=== PATIENT | female | born 1990 | race Two or more races ===

== ENCOUNTER 2017-04-09 00:26 | Inpatient (IN) | payer MEDICAID ==
[2017-04-09] VITALS (8 sets, daily range): BP systolic 114–130; BP diastolic 73–89
[~2017-04-09] VITALS: Ht 160 cm; Wt 69.9 kg
[2017-04-09] MEDS ORDERED: NKM (00:33)
[2017-04-09] MEDS ORDERED: Morphine Sulfate 4mg/ml Inj IVP ONE ×2 (01:00→05:30)
[2017-04-09 01:02] LABS: BASOPHILS % (AUTO) 0.9 % (0.0-2.0); EOSINOPHILS % (AUTO) 1.4 % (0.0-3.0); HEMATOCRIT 46.8 % (37.0-47.0); HEMOGLOBIN 16.3 G/DL (12.0-16.0); LYMPHOCYTES % (AUTO) 21.9 % (20.0-45.0); MEAN CORPUSCULAR VOLUME 86 FL (80-99); MONOCYTES % (AUTO) 6.5 % (1.0-10.0); NEUTROPHILS % (AUTO) 69.4 % (45.0-75.0); PLATELET COUNT 277 K/UL (150-450); RED BLOOD COUNT 5.41 M/UL (4.20-5.40); RED CELL DISTRIBUTION WIDTH 11.2 % (11.6-14.8); WHITE BLOOD COUNT 9.6 K/UL (4.8-10.8)
[2017-04-09 01:04] LABS: BILIRUBIN, URINE NEGATIVE (NEGATIVE); COLOR,URINE PALE YELLOW; GLUCOSE, URINE (UA) NEGATIVE (NEGATIVE); KETONES,URINE NEGATIVE (NEGATIVE); LEUKOCYTE ESTERASE ,URINE 3+ (NEGATIVE); NITRITE,URINE NEGATIVE (NEGATIVE); PH,URINE 6.5 (4.5-8.0); PROTEIN,URINE 1+ (NEGATIVE); UROBILINOGEN,URINE NORMAL MG/DL (0.0-1.0)
[2017-04-09 01:12] LABS: ANION GAP 11 mmol/L (5-15); BLOOD UREA NITROGEN 15 mg/dL (7-18); CALCIUM 8.2 MG/DL (8.5-10.1); CARBON DIOXIDE 23 MMOL/L (21-32); CHLORIDE 101 MMOL/L (98-107); CREATININE 0.6 MG/DL (0.55-1.30); POTASSIUM 3.7 MMOL/L (3.5-5.1); SODIUM 135 MMOL/L (136-145)
[2017-04-09 01:16] LABS: APPEARANCE,URINE CLOUDY
[2017-04-09 01:17] LABS: ALANINE AMINOTRANSFERASE 717 U/L (12-78); ALBUMIN 3.6 G/DL (3.4-5.0); ALBUMIN/GLOBULIN RATIO 1.1 (1.0-2.7); ALKALINE PHOSPHATASE 97 U/L (46-116); ASPARTATE AMINO TRANSFERASE 554 U/L (15-37); BILIRUBIN,TOTAL 0.8 MG/DL (0.2-1.0)
--- NOTE | 2017-04-09 02:00 | Emergency Room Report ---
History of Present Illness General Chief Complaint: Abdominal Pain Source: Patient Present Illness HPI Patient presents with epigastric pain. She states this began earlier tonight when she was drinking tequila. She states doesn't drink every day but this is a libertarian. She's been vomiting from an look like coffee and then some blood. She denies any melena or. She's never had this problem before. Pain rated 10/ 10 burning pressure, epigastric, not radiate to back. No meds taken. Also has headache. No fevers or chills. She denies daily drinking. No SI or HI. No URI symptoms. Not now. Allergies: Coded Allergies: No Known Allergies (Unverified , 04/09/17) Patient History Past Medical History: see triage record Social History: Reports: alcohol use, Denies: smoking Social History Narrative Last Menstrual Period: Mar Reviewed Nursing Documentation: PMH: Agreed, PSxH: Agreed Nursing Documentation-PMH Past Medical History: No Stated History Review of Systems All Other Systems: negative except mentioned in HPI Physical Exam Vital Signs Date Time Temp Pulse Resp B/P (MAP) Pulse Ox O2 Delivery O2 Flow Rate FiO2 04/09/17 00:28 98.7 109 16 128/89 96 Room Air 98.8 Sp02 EP Interpretation: reviewed, normal General Appearance: well appearing, GCS 15, mild distress Head: normocephalic, atraumatic Eyes: bilateral eye PERRL, bilateral eye Scleral Injection ENT: moist mucus membranes, other - buccal fullness Neck: supple Respiratory: lungs clear, normal breath sounds Cardiovascular #1: regular rate, rhythm Cardiovascular #2: 2+ radial (R) Gastrointestinal: normal inspection, normal bowel sounds, no mass, non- distended, no guarding, no rebound, tenderness Musculoskeletal: back normal, gait/station normal, normal range of motion Neurologic: alert, oriented x3, grossly normal Psychiatric: mood/affect normal Skin: normal inspection, warm/dry Medical Decision Making Diagnostic Impression: Primary Impression: Abdominal pain Qualified Codes: R10.13 - Epigastric pain Additional Impressions: Intractable vomiting with nausea Qualified Codes: R11.2 - Nausea with vomiting, unspecified Gastritis Qualified Codes: K29.21 - Alcoholic gastritis with bleeding GI bleed Qualified Codes: K29.21 - Alcoholic gastritis with bleeding Elevated LFTs ER Course Patient presents with abdominal pain and vomiting blood. Differential includes gastritis, alcoholic gastritis, peptic ulcer disease, esophagitis, Kasia- Carlos tear, hepatitis, pancreatitis amongst others. Evaluation will be with labs. Based on her exam had no imaging studies are indicated at this time. She be treated with IV hydration, Zofran and Pepcid with morphine. Labs revealed elevated liver function tests with normal bilirubin. Lipase is normal. White count is normal. H&H is actually elevated suggesting dehydration. The patient has improved but still complained of nausea and abdominal pain. Zofran is repeated. The patient still has vomiting after a trial of water. Due to the fact that she 's unable to keep down by mouth meds and still has abdominal pain the patient will be admitted to a medical floor. Given compazine and still with nausea and vomiting. Discussed consideration for AA and abstinence when stabilized. Laboratory Tests Test 04/09/17 00:35 04/09/17 00:40 Urine Color Pale yellow Urine Appearance Cloudy Urine pH 6.5 (4.5-8.0) Urine Specific [place] 1.005 (1.005-1.035) Urine Protein 1+ (NEGATIVE) H Urine Glucose (UA) Negative (NEGATIVE) Urine Ketones Negative (NEGATIVE) Urine Occult Blood 1+ (NEGATIVE) H Urine Nitrite Negative (NEGATIVE) Urine Bilirubin Negative (NEGATIVE) Urine Urobilinogen Normal MG/DL (0.0-1.0) Urine Leukocyte Esterase 3+ (NEGATIVE) H Urine RBC 2-4 /HPF (0 - 2) H Urine WBC 40-60 /HPF (0 - 2) H Urine Squamous Epithelial Cells Many /LPF (NONE/OCC) H Urine Bacteria Many /HPF (NONE) H Urine HCG, Qualitative Negative White Blood Count 9.6 K/UL (4.8-10.8) Red Blood Count 5.41 M/UL (4.20-5.40) H Hemoglobin 16.3 G/DL (12.0-16.0) H Hematocrit 46.8 % (37.0-47.0) Mean Corpuscular Volume 86 FL (80-99) Mean Corpuscular Hemoglobin 30.1 PG (27.0-31.0) Mean Corpuscular Hemoglobin Concent 34.8 G/DL (32.0-36.0) Red Cell Distribution Width 11.2 % (11.6-14.8) L Platelet Count 277 K/UL (150-450) Mean Platelet Volume 6.4 FL (6.5-10.1) L Neutrophils (%) (Auto) 69.4 % (45.0-75.0) Lymphocytes (%) (Auto) 21.9 % (20.0-45.0) Monocytes (%) (Auto) 6.5 % (1.0-10.0) Eosinophils (%) (Auto) 1.4 % (0.0-3.0) Basophils (%) (Auto) 0.9 % (0.0-2.0) Sodium Level 135 MMOL/L (136-145) L Potassium Level 3.7 MMOL/L (3.5-5.1) Chloride Level 101 MMOL/L (98-107) Carbon Dioxide Level 23 MMOL/L (21-32) Anion Gap 11 mmol/L (5-15) Blood Urea Nitrogen 15 mg/dL (7-18) Creatinine 0.6 MG/DL (0.55-1.30) Estimate Glomerular Filtration Rate > 60 mL/min (>60) Glucose Level 114 MG/DL (74-106) H Calcium Level 8.2 MG/DL (8.5-10.1) L Total Bilirubin 0.8 MG/DL (0.2-1.0) Aspartate Amino Transferase (AST) 554 U/L (15-37) H Alanine Aminotransferase (ALT) 717 U/L (12-78) H Alkaline Phosphatase 97 U/L (46-116) Total Protein 7.0 G/DL (6.4-8.2) Albumin 3.6 G/DL (3.4-5.0) Globulin 3.4 g/dL Albumin/Globulin Ratio 1.1 (1.0-2.7) Lipase 84 U/L (73-393) Last Vital Signs Date Time Temp Pulse Resp B/P (MAP) Pulse Ox O2 Delivery O2 Flow Rate FiO2 04/09/17 12:15 98.2 74 22 124/75 98 Room Air 98.2 Status: improved Disposition: ADMITTED INPATIENT Condition: Serious Referrals: NON PHYSICIAN (PCP) Dionte Bailey M.D. Apr 09, 2017 02:00
[2017-04-09] MEDS ORDERED: Pantoprazole Inj IVP ONE (05:30)
[2017-04-09] MEDS ORDERED: DiphenhydrAMINE 50mg/ml Inj IVP ONE (07:45)
[2017-04-09] MEDS ORDERED: LORazepam 1mg tab ORAL PRN (08:45)
[2017-04-09] MEDS ORDERED: traMADol 50mg tab ORAL PRN (08:45)
--- NOTE | 2017-04-09 08:53 | Consultation ---
History of Present Illness General Date patient seen: Apr 09, 2017 Present Illness Allergies: Coded Allergies: No Known Allergies (Unverified , 04/09/17) Medication History Scheduled No Known Medications* (NKM - No Known Medications*), 0 ., (Reported) Patient History Healthcare decision maker Resuscitation status Advanced Directive on File Physical Exam Last 24 Hour Vital Signs Date Time Temp Pulse Resp B/P (MAP) Pulse Ox O2 Delivery O2 Flow Rate FiO2 04/09/17 08:29 98.5 90 14 114/73 97 Room Air 209.8 04/09/17 08:29 98.5 90 14 114/73 97 Room Air 98.5 04/09/17 06:56 92 11 117/77 97 Room Air 04/09/17 05:29 98.8 04/09/17 04:40 94 14 127/85 98 Room Air 04/09/17 02:40 99 14 127/89 96 Room Air 04/09/17 01:43 98.8 04/09/17 01:04 98.8 04/09/17 00:40 98.8 109 16 128/89 96 Room Air 98.8 04/09/17 00:28 98.7 109 16 128/89 96 Room Air 98.8 Intake and Output 04/08/17 04/09/17 19:00 07:00 Intake Total 2000 ml Balance 2000 ml Intake IV Total 2000 ml # Voids 1 Laboratory Tests Test 04/09/17 00:35 04/09/17 00:40 Urine Color Pale yellow Urine Appearance Cloudy Urine pH 6.5 (4.5-8.0) Urine Specific [place] 1.005 (1.005-1.035) Urine Protein 1+ (NEGATIVE) H Urine Glucose (UA) Negative (NEGATIVE) Urine Ketones Negative (NEGATIVE) Urine Occult Blood 1+ (NEGATIVE) H Urine Nitrite Negative (NEGATIVE) Urine Bilirubin Negative (NEGATIVE) Urine Urobilinogen Normal MG/DL (0.0-1.0) Urine Leukocyte Esterase 3+ (NEGATIVE) H Urine RBC 2-4 /HPF (0 - 2) H Urine WBC 40-60 /HPF (0 - 2) H Urine Squamous Epithelial Cells Many /LPF (NONE/OCC) H Urine Bacteria Many /HPF (NONE) H Urine HCG, Qualitative Negative White Blood Count 9.6 K/UL (4.8-10.8) Red Blood Count 5.41 M/UL (4.20-5.40) H Hemoglobin 16.3 G/DL (12.0-16.0) H Hematocrit 46.8 % (37.0-47.0) Mean Corpuscular Volume 86 FL (80-99) Mean Corpuscular Hemoglobin 30.1 PG (27.0-31.0) Mean Corpuscular Hemoglobin Concent 34.8 G/DL (32.0-36.0) Red Cell Distribution Width 11.2 % (11.6-14.8) L Platelet Count 277 K/UL (150-450) Mean Platelet Volume 6.4 FL (6.5-10.1) L Neutrophils (%) (Auto) 69.4 % (45.0-75.0) Lymphocytes (%) (Auto) 21.9 % (20.0-45.0) Monocytes (%) (Auto) 6.5 % (1.0-10.0) Eosinophils (%) (Auto) 1.4 % (0.0-3.0) Basophils (%) (Auto) 0.9 % (0.0-2.0) Sodium Level 135 MMOL/L (136-145) L Potassium Level 3.7 MMOL/L (3.5-5.1) Chloride Level 101 MMOL/L (98-107) Carbon Dioxide Level 23 MMOL/L (21-32) Anion Gap 11 mmol/L (5-15) Blood Urea Nitrogen 15 mg/dL (7-18) Creatinine 0.6 MG/DL (0.55-1.30) Estimat Glomerular Filtration Rate > 60 mL/min (>60) Glucose Level 114 MG/DL (74-106) H Calcium Level 8.2 MG/DL (8.5-10.1) L Ferritin 284 NG/ML (8-388) Total Bilirubin 0.8 MG/DL (0.2-1.0) Aspartate Amino Transf (AST/SGOT) 554 U/L (15-37) H Alanine Aminotransferase (ALT/SGPT) 717 U/L (12-78) H Alkaline Phosphatase 97 U/L (46-116) Total Protein 7.0 G/DL (6.4-8.2) Albumin 3.6 G/DL (3.4-5.0) Globulin 3.4 g/dL Albumin/Globulin Ratio 1.1 (1.0-2.7) Lipase 84 U/L (73-393) Acetaminophen Level < 2 MCG/ML (10-30) L Height (Feet): 5 Height (Inches): 3.00 Weight (Pounds): 154 Medications Current Medications Medications (Trade) Dose Ordered Sig/Rakesh Route PRN Reason Start Time Stop Time Status Last Admin Dose Admin Sodium Chloride 1,000 ml @ 300 mls/hr Q3H20M IV 04/09/17 01:00 05/09/17 00:59 04/09/17 05:29 Assessment/Plan Assessment/Plan (1) Alcohol Abuse (2) Alcohol withdrawal (3) Abdominal pain (4) Gastritis Seen dictated RASHID FLOWERS Apr 09, 2017 08:53
--- NOTE | 2017-04-09 10:31 | GI Initial Consult Note ---
History of Present Illness General Date patient seen: Apr 09, 2017 Time patient seen: 10:25 Reason for Hospitalization: Abdominal Pain Referring physician: DAVIDSON DÍAZ Reason for Consultation: PERSISTANT VOMITING Present Illness HPI Patient presents with epigastric pain. She states this began earlier tonight when she was drinking tequila. She states doesn't drink every day but this is a democrat. She's been vomiting from an look like coffee and then some blood. She denies any melena or. She's never had this problem before. GI consulted for persistent vomiting. Pt seen on med surg, awake A&Ox4 NAD ambulatory with no active s/sx of N/V/D. Denies any abdominal pain. States she is ready to be discharged. Per patient, had almost a full bottle of tequila. No known medical history. No history of endoscopy / colonoscopy. Home Meds Reported Medications No Known Medications* (NKM - No Known Medications*) ., 0 ., 0 Refills 04/09/17 Med list reviewed/reconciled: Yes Allergies: Coded Allergies: No Known Allergies (Unverified , 04/09/17) Patient History History Provided By: Patient, Medical Record PMH Narrative Social History: Reports: alcohol use Social History Narrative Last Menstrual Period: Mar Reviewed Nursing Documentation: PSxH: Agreed Nursing Documentation-PMH Past Medical History: No Stated History Social History: Reports: alcohol use - ETOH intoxication Review of Systems All Other Systems: negative except mentioned in HPI Physical Exam Vital Signs Date Time Temp Pulse Resp B/P (MAP) Pulse Ox O2 Delivery O2 Flow Rate FiO2 04/09/17 00:28 98.7 109 16 128/89 96 Room Air 98.8 Sp02 EP Interpretation: reviewed, normal Labs Laboratory Tests Test 04/09/17 00:35 04/09/17 00:40 Urine Color Pale yellow Urine Appearance Cloudy Urine pH 6.5 (4.5-8.0) Urine Specific [place] 1.005 (1.005-1.035) Urine Protein 1+ (NEGATIVE) H Urine Glucose (UA) Negative (NEGATIVE) Urine Ketones Negative (NEGATIVE) Urine Occult Blood 1+ (NEGATIVE) H Urine Nitrite Negative (NEGATIVE) Urine Bilirubin Negative (NEGATIVE) Urine Urobilinogen Normal MG/DL (0.0-1.0) Urine Leukocyte Esterase 3+ (NEGATIVE) H Urine RBC 2-4 /HPF (0 - 2) H Urine WBC 40-60 /HPF (0 - 2) H Urine Squamous Epithelial Cells Many /LPF (NONE/OCC) H Urine Bacteria Many /HPF (NONE) H Urine HCG, Qualitative Negative White Blood Count 9.6 K/UL (4.8-10.8) Red Blood Count 5.41 M/UL (4.20-5.40) H Hemoglobin 16.3 G/DL (12.0-16.0) H Hematocrit 46.8 % (37.0-47.0) Mean Corpuscular Volume 86 FL (80-99) Mean Corpuscular Hemoglobin 30.1 PG (27.0-31.0) Mean Corpuscular Hemoglobin Concent 34.8 G/DL (32.0-36.0) Red Cell Distribution Width 11.2 % (11.6-14.8) L Platelet Count 277 K/UL (150-450) Mean Platelet Volume 6.4 FL (6.5-10.1) L Neutrophils (%) (Auto) 69.4 % (45.0-75.0) Lymphocytes (%) (Auto) 21.9 % (20.0-45.0) Monocytes (%) (Auto) 6.5 % (1.0-10.0) Eosinophils (%) (Auto) 1.4 % (0.0-3.0) Basophils (%) (Auto) 0.9 % (0.0-2.0) Sodium Level 135 MMOL/L (136-145) L Potassium Level 3.7 MMOL/L (3.5-5.1) Chloride Level 101 MMOL/L (98-107) Carbon Dioxide Level 23 MMOL/L (21-32) Anion Gap 11 mmol/L (5-15) Blood Urea Nitrogen 15 mg/dL (7-18) Creatinine 0.6 MG/DL (0.55-1.30) Estimat Glomerular Filtration Rate > 60 mL/min (>60) Glucose Level 114 MG/DL (74-106) H Calcium Level 8.2 MG/DL (8.5-10.1) L Ferritin 284 NG/ML (8-388) Total Bilirubin 0.8 MG/DL (0.2-1.0) Aspartate Amino Transf (AST/SGOT) 554 U/L (15-37) H Alanine Aminotransferase (ALT/SGPT) 717 U/L (12-78) H Alkaline Phosphatase 97 U/L (46-116) Total Protein 7.0 G/DL (6.4-8.2) Albumin 3.6 G/DL (3.4-5.0) Globulin 3.4 g/dL Albumin/Globulin Ratio 1.1 (1.0-2.7) Lipase 84 U/L (73-393) Acetaminophen Level < 2 MCG/ML (10-30) L General Appearance: well appearing, no apparent distress, alert, obese Head: normocephalic EENT: PERRL/EOMI, normal ENT inspection Neck: supple Respiratory: normal breath sounds, no respiratory distress Cardiovascular: normal rate Gastrointestinal: normal inspection, non tender, soft, normal bowel sounds, non -distended Rectal: deferred Genitourinary: no CVA tenderness Musculoskeletal: normal inspection, back normal Neurologic: normal inspection, alert, oriented x3, responsive Psychiatric: normal inspection, judgement/insight normal, memory normal Skin: normal inspection, normal color, no rash, warm/dry, palpation normal, well hydrated Lymphatic: normal inspection, no adenopathy Current Medications Current Medications Medications (Trade) Dose Ordered Sig/Rakesh Route PRN Reason Start Time Stop Time Status Last Admin Dose Admin Lorazepam (Ativan) 2 mg Q4H PRN ORAL agitation 04/09/17 08:45 04/16/17 08:44 Ondansetron HCl (Zofran) 4 mg Q6H PRN IVP Nausea & Vomiting 04/09/17 10:00 05/09/17 09:59 UNV Sodium Chloride 1,000 ml @ 300 mls/hr Q3H20M IV 04/09/17 01:00 05/09/17 00:59 04/09/17 05:29 Tramadol HCl (Ultram) 50 mg Q6H PRN ORAL severe pain 04/09/17 08:45 04/16/17 08:44 GI: Plan Problems: (1) Transaminitis (2) Hepatotoxicity, secondary to ETOH (3) Abdominal pain (4) Persistent vomiting (5) Intractable vomiting with nausea Plan symptomatic treatment adv to regular diet ppi zofran prn fu labs avoid excessive alcohol education given okay for DC per GI standpoint Discussed with Dr. King. Thank you for this patient referral, we will follow. Stacy Lui N.P. Apr 09, 2017 10:31
--- NOTE | 2017-04-09 15:07 | Consultation ---
Consult Note Consult Note Patient presents with epigastric pain. She states this began earlier tonight when she was drinking tequila. She states doesn't drink every day but this is a republican. She's been vomiting from an look like coffee and then some blood. She denies any melena or. She's never had this problem before. Pain rated 10/ 10 burning pressure, epigastric, not radiate to back. No meds taken. Also has headache. No fevers or chills. She denies daily drinking. No SI or HI. No URI symptoms. Not now. . Assessment/Plan Dehydration-Intractable vomiting with nausea High LFTs- UTI - Abdominal pain Plan: Hydrate- Monitor lytes and LFTs per orders THAI ZAVALA Apr 09, 2017 15:07
[2017-04-09] MEDS: D5NS 1,000 ML IV SCH (16:28)
--- NOTE | 2017-04-09 18:30 | Consultation ---
DATE OF CONSULTATION: 04/09/2017 PAIN MANAGEMENT CONSULTATION CONSULTING PHYSICIAN: Brandan Leger M.D. REFERRING PHYSICIAN: Wilma Chau M.D. PHYSICIAN LEASING PROPERTY MANAGER: Astrid Gaxiola CHIEF COMPLAINT: Abdominal pain. HISTORY OF PRESENT ILLNESS: The patient is a 27-year-old female who is being seen on the Medical/Surgical floor of [facility] for a comprehensive pain management consultation. The patient reports that she has been having abdominal pain due to drinking multiple shots of Tequila with nausea and vomiting. She was drinking due to a green party and again drank too much and now has been having severe abdominal pain with nausea and vomiting. The patient received morphine 4 mg IV, Zofran and Pepcid while in the emergency room. Now has been admitted under the care of Dr. Chau. We were consulted the patient has adequate pain control while here in the hospital. PAST MEDICAL HISTORY: Denies. PAST SURGICAL HISTORY: Denies. SOCIAL HISTORY: Drinks alcohol. Denies tobacco and IV drug abuse. ALLERGIES: No known drug allergies. MEDICATIONS: She does not take any medication as an outpatient. REVIEW OF SYSTEMS: Denies rash, fever, chills, sweating, dizziness, drowsiness, blurred vision, sore throat, or change in her weight. No shortness of breath. No bowel or bladder incontinence. No dysuria. She is complaining of nausea, vomiting, and abdominal pain. PHYSICAL EXAMINATION: GENERAL: Alert, awake, and oriented x3. VITAL SIGNS: Blood pressure 114/73, heart rate is 90, oxygen saturation 97%, respiratory rate is 14, and temperature 98.4 degrees Fahrenheit. HEENT: PERRLA. NECK: Range of motion full in all directions. No tenderness to paracervical muscles. LUNGS: Clear. HEART: Regular. ABDOMEN: Tenderness to palpation. BACK: Range of motion is full on flexion and extension. EXTREMITIES: No cyanosis, no clubbing, and no edema. NEUROLOGICAL: No focal deficit. ASSESSMENT AND PLAN: This is a 27-year-old female with alcohol abuse, alcohol withdrawal, abdominal pain, and gastritis. The patient will be started on tramadol 50 mg tablet every six hours as needed for severe pain as well as an Ativan 2 mg tablet every four hours as needed for agitation recommended at this time. The patient was discussed with Dr. Leger and Dr. Leger concurred. We will follow the patient. Thank you very much for the courtesy of this consultation. Brandan Leger M.D. DIANE Gaxiola DR: OPAL JOB#: [id number] CC:
--- NOTE | 2017-04-09 20:15 | Consultation ---
DATE OF CONSULTATION: 04/09/2017 HEMATOLOGY/ONCOLOGY CONSULTATION CONSULTING PHYSICIAN: Sandip Sweeney M.D. REQUESTING PHYSICIAN: Wilma Chau M.D. REASON FOR CONSULTATION: Evaluation of erythrocytosis. IDENTIFICATION DATA: Dear Dr. Chau, The patient is a pleasant 27-year-old female with past medical history significant just for alcohol abuse, having regular periods, at this time presents to the ER with epigastric abdominal pain that has been onset for several hours. She said she was drinking tequila, noticed to have severe abdominal pain. Does not smoke marijuana per the patient. Also does not have any family history of such symptoms. None of her friends sustained similar symptoms. She was noted to have a hemoglobin of 16.3, does not have a history of hemochromatosis per her family. Hematology Service was consulted for further evaluation and treatment. Denies any melena. PAST MEDICAL HISTORY: Alcohol abuse. PAST SURGICAL HISTORY: None reported. ALLERGIES: No known drug allergies. SOCIAL HISTORY: Alcohol abuse. REVIEW OF SYSTEMS: CONSTITUTIONAL: No fever, chills, or night sweats. SKIN: No rashes, bumps, or itching. HEENT: No headaches or vision changes. BREASTS: No lumps, pain, or discharge. PULMONARY: No cough, sputum, or shortness of breath. GASTROINTESTINAL: No nausea, vomiting, or diarrhea. GENITOURINARY: No dysuria, frequency, or urgency. MUSCULOSKELETAL: No joint swelling, muscle pain, or trauma. PHYSICAL EXAMINATION: GENERAL: No distress. VITAL SIGNS: Reviewed. PULMONARY: Decreased breath sounds. CARDIOVASCULAR: Regular rate. No S3 or S4. ABDOMEN: Soft. Some mild tenderness noted actually in the epigastric area. EXTREMITIES: No cyanosis, swelling, or edema. LABORATORY DATA: WBC 5.6, hemoglobin 16.3, hematocrit 47, and platelet count 277,000. ASSESSMENT AND RECOMMENDATIONS: 1. Erythrocytosis, potentially secondary to hypokalemia and hypovolemia. The patient is dehydrated. Continue to closely monitor. Send off for ferritin. If ferritin is high, consider hemochromatosis. 2. Transaminitis, potentially concerning to alcohol abuse. 3. Epigastric pain. Obtain imaging of the abdomen. 4. Alcohol abuse. Recommend cessation. I appreciate the consultation. Sandip Christi Sweeney DR: PHILLIP JOB#: [id number] CC:
--- NOTE | 2017-04-09 23:45 | History and Physical Report ---
DATE OF ADMISSION: 04/09/2017 HISTORY OF PRESENT ILLNESS: The patient comes in, has history of drug abuse, history of alcohol abuse, comes with abdominal pain and vomiting since yesterday. The patient has history of alcohol abuse. The patient denies rectal bleeding. Denies hematemesis, but apparently there was one episode of coffee-ground emesis. The patient denies hallucinations. Denies any significant tremors at this point. PAST MEDICAL HISTORY: Significant for history of alcohol abuse. PAST SURGICAL HISTORY: None. MEDICATIONS: None. FAMILY HISTORY: Noncontributory. SOCIAL HISTORY: Has history of drug and alcohol abuse. REVIEW OF SYSTEMS: HEENT: Denies headaches. RESPIRATORY: Denies shortness of breath. Denies cough. CARDIOVASCULAR: Denies chest pain. Denies orthopnea. GASTROINTESTINAL: Reports abdominal pain and vomiting, one time coffee-ground emesis since yesterday. Denies diarrhea. EXTREMITIES: Denies pain in lower extremities. CENTRAL NERVOUS SYSTEM: No change in vision or speech pattern. Does have . PHYSICAL EXAMINATION: VITAL SIGNS: Temperature 98.5, pulse 98, and blood pressure 114/73. HEENT: PERRLA. NECK: Supple. No lymphadenopathy. CHEST: Clear to auscultation. GASTROINTESTINAL: Mild epigastric tenderness. No rebound. Abdomen is soft. EXTREMITIES: No edema in the lower extremities. She is able to move all four extremities. NEUROLOGIC: No focal neurological deficit. LABORATORY DATA: WBC of 9.6, hemoglobin 16.3, platelets 277. Sodium 135, potassium 3.7, BUN 15, creatinine 0.6, glucose of 114. AST of 554 and ALT 717. Negative lipase. ASSESSMENT AND PLAN: Upper gastrointestinal bleed, persistent vomiting, alcohol abuse. I have asked Dr. King, Dr. Rosales, Dr. Kasper, Dr. Ramirez, and Dr. Leger for management of the above-mentioned diagnoses and treatment and also for management of any DTs if the patient does end up having it at this point. I doubt that the patient is going through DTs, but in case she does go through DTs, Dr. Kasper and Dr. Ramirez will also help us with the management of that. Wilma Chau M.D. DR: Jenifer JOB#: [id number] CC:
[2017-04-10] VITALS: BP 121/86
[2017-04-10 04:00] VITALS: BP 122/84
[2017-04-10] MEDS: D5NS 1,000 ML IV SCH (05:42)
[2017-04-10 07:30] LABS: BASOPHILS % (AUTO) 1.2 % (0.0-2.0); EOSINOPHILS % (AUTO) 4.9 % (0.0-3.0); HEMATOCRIT 43.3 % (37.0-47.0); LYMPHOCYTES % (AUTO) 32.4 % (20.0-45.0); MEAN CORPUSCULAR VOLUME 89 FL (80-99); MONOCYTES % (AUTO) 7.2 % (1.0-10.0); NEUTROPHILS % (AUTO) 54.3 % (45.0-75.0); PLATELET COUNT 216 K/UL (150-450); RED BLOOD COUNT 4.88 M/UL (4.20-5.40); RED CELL DISTRIBUTION WIDTH 11.7 % (11.6-14.8)
[2017-04-10 07:50] LABS: ALANINE AMINOTRANSFERASE 522 U/L (12-78); ALBUMIN 3.4 G/DL (3.4-5.0); ALBUMIN/GLOBULIN RATIO 1.1 (1.0-2.7); ALKALINE PHOSPHATASE 98 U/L (46-116); ANION GAP 7 mmol/L (5-15); ASPARTATE AMINO TRANSFERASE 240 U/L (15-37); BILIRUBIN,TOTAL 0.9 MG/DL (0.2-1.0); BLOOD UREA NITROGEN 2 mg/dL (7-18); CALCIUM 8.3 MG/DL (8.5-10.1); CARBON DIOXIDE 31 MMOL/L (21-32); CHLORIDE 103 MMOL/L (98-107); CREATINE KINASE 59 U/L (26-308); CREATININE 0.6 MG/DL (0.55-1.30); GAMMA GLUTAMYL TRANSPEPTIDASE 78 U/L (5-85); PHOSPHORUS 2.9 MG/DL (2.5-4.9); POTASSIUM 3.2 MMOL/L (3.5-5.1); SODIUM 140 MMOL/L (136-145)
[2017-04-10 09:00] VITALS: BP 125/73
--- NOTE | 2017-04-10 10:55 | GI Progress Note ---
Assessment/Plan Problems: (1) Intractable vomiting with nausea ICD Codes: R11.2 - Nausea with vomiting, unspecified SNOMED: 201931980 Qualifiers: Qualified Codes: R11.2 - Nausea with vomiting, unspecified (2) GI bleed ICD Codes: K92.2 - Gastrointestinal hemorrhage, unspecified SNOMED: 44929964 Qualifiers: Qualified Codes: K29.21 - Alcoholic gastritis with bleeding (3) Abdominal pain ICD Codes: R10.9 - Unspecified abdominal pain SNOMED: 23200068 Qualifiers: Qualified Codes: R10.13 - Epigastric pain (4) Gastritis ICD Codes: K29.70 - Gastritis, unspecified, without bleeding SNOMED: 4614932 Qualifiers: Qualified Codes: K29.21 - Alcoholic gastritis with bleeding (5) Elevated LFTs ICD Codes: R79.89 - Other specified abnormal findings of blood chemistry SNOMED: 898365927, 818915688 (6) Hepatotoxicity, secondary to ETOH ICD Codes: K70.9 - Alcoholic liver disease, unspecified SNOMED: 86597349 (7) Transaminitis ICD Codes: R74.0 - Nonspecific elevation of levels of transaminase and lactic acid dehydrogenase [LDH] SNOMED: 181558894, 678084173 (8) Persistent vomiting ICD Codes: R11.10 - Vomiting, unspecified SNOMED: 932825619 Status: stable Status Narrative Discussed with Dr. King. Assessment/Plan okay for DC per GI standpoint symptomatic treatment adv to regular diet ppi zofran prn fu labs avoid excessive alcohol Subjective Gastrointestinal/Abdominal: Reports: no symptoms Subjective ready for discharge Objective Last 24 Hour Vital Signs Date Time Temp Pulse Resp B/P (MAP) Pulse Ox O2 Delivery O2 Flow Rate FiO2 04/10/17 09:00 98.1 79 18 125/73 98 Room Air 98.1 04/10/17 04:00 98.5 81 19 122/84 97 Room Air 98.5 04/10/17 00:00 98.1 71 20 121/86 97 98.1 04/09/17 20:00 98.1 69 20 130/80 98 98.1 04/09/17 16:00 98.6 74 20 123/85 98 98.6 04/09/17 12:15 98.2 74 22 124/75 98 Room Air 98.2 Intake and Output 04/09/17 04/10/17 19:00 07:00 Intake Total 555 ml 750 ml Balance 555 ml 750 ml Intake Oral 480 ml IV Total 75 ml 750 ml # Voids 1 5 Laboratory Tests Test 04/10/17 06:05 White Blood Count 6.0 K/UL (4.8-10.8) Red Blood Count 4.88 M/UL (4.20-5.40) Hemoglobin 15.0 G/DL (12.0-16.0) Hematocrit 43.3 % (37.0-47.0) Mean Corpuscular Volume 89 FL (80-99) Mean Corpuscular Hemoglobin 30.7 PG (27.0-31.0) Mean Corpuscular Hemoglobin Concent 34.6 G/DL (32.0-36.0) Red Cell Distribution Width 11.7 % (11.6-14.8) Platelet Count 216 K/UL (150-450) Mean Platelet Volume 7.0 FL (6.5-10.1) Neutrophils (%) (Auto) 54.3 % (45.0-75.0) Lymphocytes (%) (Auto) 32.4 % (20.0-45.0) Monocytes (%) (Auto) 7.2 % (1.0-10.0) Eosinophils (%) (Auto) 4.9 % (0.0-3.0) H Basophils (%) (Auto) 1.2 % (0.0-2.0) Sodium Level 140 MMOL/L (136-145) Potassium Level 3.2 MMOL/L (3.5-5.1) L Chloride Level 103 MMOL/L (98-107) Carbon Dioxide Level 31 MMOL/L (21-32) Anion Gap 7 mmol/L (5-15) Blood Urea Nitrogen 2 mg/dL (7-18) L Creatinine 0.6 MG/DL (0.55-1.30) Estimat Glomerular Filtration Rate > 60 mL/min (>60) Glucose Level 92 MG/DL (74-106) Uric Acid 2.6 MG/DL (2.6-7.2) Calcium Level 8.3 MG/DL (8.5-10.1) L Phosphorus Level 2.9 MG/DL (2.5-4.9) Magnesium Level 1.5 MG/DL (1.8-2.4) L Total Bilirubin 0.9 MG/DL (0.2-1.0) Gamma Glutamyl Transpeptidase 78 U/L (5-85) Aspartate Amino Transf (AST/SGOT) 240 U/L (15-37) H Alanine Aminotransferase (ALT/SGPT) 522 U/L (12-78) H Alkaline Phosphatase 98 U/L (46-116) Total Creatine Kinase 59 U/L (26-308) Total Protein 6.6 G/DL (6.4-8.2) Albumin 3.4 G/DL (3.4-5.0) Globulin 3.2 g/dL Albumin/Globulin Ratio 1.1 (1.0-2.7) Height (Feet): 5 Height (Inches): 3.00 Weight (Pounds): 154 General Appearance: WD/WN, no apparent distress, alert Cardiovascular: normal rate Respiratory/Chest: normal breath sounds, no respiratory distress Abdominal Exam: normal bowel sounds, non tender, soft Extremities: normal range of motion, non-tender Stacy Lui N.P. Apr 10, 2017 10:55
[2017-04-10] MEDS ORDERED: Acetaminophen 500mg (ES) tab ORAL PRN (11:15)
--- NOTE | 2017-04-10 11:18 | Nephrology Progress Note ---
Assessment/Plan Assessment Dehydration-Intractable vomiting with nausea- GI Sxs resolved High LFTs- UTI - Abdominal pain Plan Plan: advance diet Monitor lytes and LFTs per orders DC FU OP Subjective ROS Limited/Unobtainable: No Objective Objective Last 24 Hour Vital Signs Date Time Temp Pulse Resp B/P (MAP) Pulse Ox O2 Delivery O2 Flow Rate FiO2 04/10/17 09:00 98.1 79 18 125/73 98 Room Air 98.1 04/10/17 04:00 98.5 81 19 122/84 97 Room Air 98.5 04/10/17 00:00 98.1 71 20 121/86 97 98.1 04/09/17 20:00 98.1 69 20 130/80 98 98.1 04/09/17 16:00 98.6 74 20 123/85 98 98.6 04/09/17 12:15 98.2 74 22 124/75 98 Room Air 98.2 Intake and Output 04/09/17 04/10/17 19:00 07:00 Intake Total 555 ml 750 ml Balance 555 ml 750 ml Intake Oral 480 ml IV Total 75 ml 750 ml # Voids 1 5 Laboratory Tests 04/10/17 06:05: White Blood Count 6.0, Red Blood Count 4.88, Hemoglobin 15.0, Hematocrit 43.3, Mean Corpuscular Volume 89, Mean Corpuscular Hemoglobin 30.7, Mean Corpuscular Hemoglobin Concent 34.6, Red Cell Distribution Width 11.7, Platelet Count 216, Mean Platelet Volume 7.0, Neutrophils (%) (Auto) 54.3, Lymphocytes (%) (Auto) 32.4, Monocytes (%) (Auto) 7.2, Eosinophils (%) (Auto) 4.9H, Basophils (%) (Auto ) 1.2, Sodium Level 140, Potassium Level 3.2L, Chloride Level 103, Carbon Dioxide Level 31, Anion Gap 7, Blood Urea Nitrogen 2L, Creatinine 0.6, Estimat Glomerular Filtration Rate > 60, Glucose Level 92, Uric Acid 2.6, Calcium Level 8.3L, Phosphorus Level 2.9, Magnesium Level 1.5L, Total Bilirubin 0.9, Gamma Glutamyl Transpeptidase 78, Aspartate Amino Transf (AST/SGOT) 240H, Alanine Aminotransferase (ALT/SGPT) 522H, Alkaline Phosphatase 98, Total Creatine Kinase 59, Total Protein 6.6, Albumin 3.4, Globulin 3.2, Albumin/Globulin Ratio 1.1 Height (Feet): 5 Height (Inches): 3.00 Weight (Pounds): 154 General Appearance: no apparent distress Abdomen: soft THAI ROBLERO Apr 10, 2017 11:18
[2017-04-10 12:20] VITALS: BP 123/79
[2017-04-10] MEDS ORDERED: D5NS 1000ml IV ONE (15:54)
--- NOTE | 2017-04-10 23:19 | General Progress Note ---
Assessment/Plan Status: unchanged Assessment/Plan 1. Erythrocytosis, potentially secondary to hypokalemia and hypovolemia. --> The patient is dehydrated. --> Continue to closely monitor. --> Send off for ferritin. If ferritin is high, consider hemochromatosis. --> Ferritin is 284, does not need treatment at this time. 2. Transaminitis, potentially concerning to alcohol abuse. 3. Epigastric pain. --> Obtain imaging of the abdomen. 4. Alcohol abuse. --> Recommend cessation. Subjective Date patient seen: Apr 10, 2017 Constitutional: Denies: no symptoms, chills, diaphoresis, fever, malaise, weakness, other HEENT: Denies: no symptoms, eye pain, blurred vision, tearing, double vision, ear pain, ear discharge, nose pain, nose congestion, throat pain, throat swelling, mouth pain, mouth swelling, other Cardiovascular: Denies: no symptoms, chest pain, edema, irregular heart rate, lightheadedness, palpitations, syncope, other Respiratory: Denies: no symptoms, cough, orthopnea, shortness of breath, SOB with excertion, SOB at rest, sputum, stridor, wheezing, other Gastrointestinal/Abdominal: Denies: no symptoms, abdomen distended, abdominal pain, black stools, tarry stools, blood in stool, constipated, diarrhea, difficulty swallowing, nausea, poor appetite, poor fluid intake, rectal bleeding , vomiting, other Genitourinary: Denies: no symptoms, burning, discharge, frequency, flank pain, hematuria, incontinence, pain, urgency, other Allergies: Coded Allergies: No Known Allergies (Unverified , 04/09/17) Subjective NAD. No fever or chills. Objective Last 24 Hour Vital Signs Date Time Temp Pulse Resp B/P (MAP) Pulse Ox O2 Delivery O2 Flow Rate FiO2 04/10/17 12:20 97.8 74 19 123/79 96 Room Air 97.8 04/10/17 09:00 98.1 79 18 125/73 98 Room Air 98.1 04/10/17 04:00 98.5 81 19 122/84 97 Room Air 98.5 04/10/17 00:00 98.1 71 20 121/86 97 98.1 Intake and Output 04/09/17 04/10/17 19:00 07:00 Intake Total 555 ml 750 ml Balance 555 ml 750 ml Intake Oral 480 ml IV Total 75 ml 750 ml # Voids 1 5 Laboratory Tests 04/10/17 06:05: White Blood Count 6.0, Red Blood Count 4.88, Hemoglobin 15.0, Hematocrit 43.3, Mean Corpuscular Volume 89, Mean Corpuscular Hemoglobin 30.7, Mean Corpuscular Hemoglobin Concent 34.6, Red Cell Distribution Width 11.7, Platelet Count 216, Mean Platelet Volume 7.0, Neutrophils (%) (Auto) 54.3, Lymphocytes (%) (Auto) 32.4, Monocytes (%) (Auto) 7.2, Eosinophils (%) (Auto) 4.9H, Basophils (%) (Auto ) 1.2, Sodium Level 140, Potassium Level 3.2L, Chloride Level 103, Carbon Dioxide Level 31, Anion Gap 7, Blood Urea Nitrogen 2L, Creatinine 0.6, Estimat Glomerular Filtration Rate > 60, Glucose Level 92, Uric Acid 2.6, Calcium Level 8.3L, Phosphorus Level 2.9, Magnesium Level 1.5L, Total Bilirubin 0.9, Gamma Glutamyl Transpeptidase 78, Aspartate Amino Transf (AST/SGOT) 240H, Alanine Aminotransferase (ALT/SGPT) 522H, Alkaline Phosphatase 98, Total Creatine Kinase 59, Total Protein 6.6, Albumin 3.4, Globulin 3.2, Albumin/Globulin Ratio 1.1 Height (Feet): 5 Height (Inches): 3.00 Weight (Pounds): 154 General Appearance: confused Cardiovascular: normal rate Respiratory/Chest: decreased breath sounds Abdomen: soft Sandip Sweeney Apr 10, 2017 23:19
--- NOTE | 2017-04-11 15:23 | Discharge Summary ---
Discharge Summary Hospital Course Date of Admission Apr 09, 2017 at 05:27 Date of Discharge Apr 10, 2017 at 15:55 Admitting Diagnosis persistent vomiting MICHAEL Iglesias is a 27 year old female who was admitted on Apr 09, 2017 at 05:27 for Persistant Vomiting Hospital Course [id number] Discharge Discharge Disposition Patient was discharged to Home (01) Discharge Diagnoses: Leonor Lopez NP Apr 11, 2017 15:23
--- NOTE | 2017-04-12 00:30 | Discharge Summary 2 SIG ---
DATE OF ADMISSION: 04/09/2017 DATE OF DISCHARGE: 04/10/2017 CONSULTANTS: 1. Sandip Sweeney M.D. 2. Graham Rosales M.D. 3. Kal King M.D. 4. Brandan Leger M.D. BRIEF HOSPITAL COURSE: The patient is a 27-year-old female with history of drug abuse, history of alcohol abuse, presented with abdominal pain and vomiting. The patients symptoms started the day prior to admission, the patient was drinking tequila and had been vomiting that looked like some coffee and some blood. She denied any melena. She had epigastric pain which was nonradiating to the back. On evaluation at ED, she was given IV hydration, Zofran, and Pepcid. Blood work showed elevated liver function tests with normal bilirubin. Lipase was normal. There was no leukocytosis. The patient continued vomiting at ED and unable to keep anything down by mouth. She was given Compazine. Urinalysis showed wbc 40 to 60, rbc 2 to 4 with 3+ leukocyte esterase. HCG was negative. She was admitted for transaminitis and upper GI bleed. She was given pain management and was given tramadol and Ativan p.r.n. severe agitation. She was continued on IV hydration and diet was advanced. She was counseled against excessive alcohol use. LFTs downtrended. Urinalysis showed growth of mixed gram-positive organisms with low colony count. She was eventually discharged home. FINAL DIAGNOSES: 1. Epigastric pain with vomiting. 2. Alcohol abuse. 3. Erythrocytosis. 4. Transaminitis secondary to alcohol abuse. 5. Dehydration. 6. Possible UTI. DISPOSITION: The patient was discharged home. DISCHARGE INSTRUCTIONS: Follow up with PCP in a week. Wilma Chau M.D. I have been assigned to dictate discharge summary on this account and I was not involved in the patient's management. Leonor Lopez N.P. DR: Yoko JOB#: [id number] CC: AIRAM
== END 2017-04-10 15:55 | disposition home or self-care (01) | DRG 241 ==
LOC: EMR 00:52 → 4E 05:27 → EDBEDREQ 06:28 → 4E 21:27
DX: K29.70 Gastritis, unspecified, without bleeding (principal); K70.9 Alcoholic liver disease, unspecified; D75.1 Secondary polycythemia; R10.13 Epigastric pain; N39.0 Urinary tract infection, site not specified; E86.0 Dehydration; R74.0 Nonspecific elevation of levels of transaminase and lactic acid dehydrogenase [LDH]; R11.2 Nausea with vomiting, unspecified; F10.10 Alcohol abuse, uncomplicated
CPT/HCPCS: 36415; 80053; 80329; 81003; 81025; 82550; 82728; 82977; 83690; 83735; 84100; 84550; 85025; 87086; 99285; J2405; J8499

== ENCOUNTER 2018-04-24 08:30 | Emergency (ER) | payer MEDICAID ==
[~2018-04-24] VITALS: Ht 162.6 cm; Wt 72.6 kg
[~2018-04-24 08:30] MED LIST: NKM
--- NOTE | 2018-04-24 08:40 | NUR ---
ED Nurse Note: pt walked in to ER with c/o vomiting for 1 day. pt is currently vomiting yellow bile. pt aao x4 and skin clean and intact. pt reported last period was 03/16/18 and said she is always irregular.
--- NOTE | 2018-04-24 08:44 | NUR ---
ED Nurse Note: Patient was sent to bathroom to provide urine sample and she forgot to collect it and flushed urine. pt was asked to try again.
--- NOTE | 2018-04-24 08:46 | NUR ---
ED Nurse Note: pt could not obtain urine again. we will try again.
[2018-04-24 08:51] VITALS: BP 128/88
[2018-04-24] MEDS ORDERED: Lidocaine 2% Visc 15ml soln ORAL ONE (09:00)
[2018-04-24] MEDS ORDERED: Mylanta II UD 30ml ORAL ONE (09:00)
[2018-04-24 09:21] LABS: BASOPHILS % (AUTO) 1.3 % (0.0-2.0); EOSINOPHILS % (AUTO) 0.3 % (0.0-3.0); HEMATOCRIT 47.1 % (37.0-47.0); HEMOGLOBIN 16.2 G/DL (12.0-16.0); LYMPHOCYTES % (AUTO) 17.3 % (20.0-45.0); MEAN CORPUSCULAR VOLUME 88 FL (80-99); MONOCYTES % (AUTO) 8.3 % (1.0-10.0); NEUTROPHILS % (AUTO) 72.9 % (45.0-75.0); PLATELET COUNT 307 K/UL (150-450); RED BLOOD COUNT 5.36 M/UL (4.20-5.40); RED CELL DISTRIBUTION WIDTH 11.4 % (11.6-14.8); WHITE BLOOD COUNT 5.3 K/UL (4.8-10.8)
[2018-04-24 09:30] LABS: ANION GAP 11 mmol/L (5-15); BLOOD UREA NITROGEN 11 mg/dL (7-18); CALCIUM 8.2 MG/DL (8.5-10.1); CARBON DIOXIDE 27 MMOL/L (21-32); CHLORIDE 101 MMOL/L (98-107); CREATININE 0.6 MG/DL (0.55-1.30); POTASSIUM 3.2 MMOL/L (3.5-5.1); SODIUM 139 MMOL/L (136-145)
--- NOTE | 2018-04-24 09:30 | Emergency Room Report ---
History of Present Illness General Chief Complaint: Abdominal Pain Source: Patient Present Illness HPI This patient states that her father recently. She states that on Friday she was drinking tequila. She states she normally doesn't drink a lot but when she does she gets abdominal pain. She has had this previously. She states that she has had pain for the past 2 days. She is also had nausea and vomiting. She states that the pain is primarily in her upper right abdomen and upper middle abdomen. She denies fever or chills. She denies dysuria or hematuria. She has no other complaints. Allergies: Coded Allergies: No Known Allergies (Unverified , 04/09/17) Patient History Past Medical History: none, GERD Social History: Reports: alcohol use; Denies: smoking, drug use Last Menstrual Period: 03/16/2018 Reviewed Nursing Documentation: PMH: Agreed; PSxH: Agreed Nursing Documentation-PMH Past Medical History: No History, Except For Hx Gastrointestinal Problems: Yes - gastritis Review of Systems All Other Systems: negative except mentioned in HPI Physical Exam Vital Signs Date Time Temp Pulse Resp B/P (MAP) Pulse Ox O2 Delivery O2 Flow Rate FiO2 04/24/18 08:37 98.2 106 18 129/85 98 Room Air Sp02 EP Interpretation: reviewed, normal General Appearance: no apparent distress, alert, GCS 15, non-toxic Head: normocephalic, atraumatic Eyes: bilateral eye normal inspection, bilateral eye PERRL ENT: hearing grossly normal, normal pharynx, no angioedema, normal voice Neck: full range of motion, supple/symm/no masses Respiratory: chest non-tender, lungs clear, normal breath sounds, no respiratory distress, no retraction, no accessory muscle use, speaking full sentences Cardiovascular #1: regular rate, rhythm, no edema Gastrointestinal: normal bowel sounds, non tender, soft, non-distended, no guarding, no rebound, tenderness - TTP in the RUQ and epigastrium Rectal: deferred Musculoskeletal: back normal, gait/station normal, normal range of motion, non- tender Neurologic: alert, oriented x3, responsive, motor strength/tone normal, sensory intact, speech normal Psychiatric: judgement/insight normal, memory normal, mood/affect normal, no suicidal/homicidal ideation Skin: normal color, no rash, warm/dry, well hydrated Medical Decision Making Diagnostic Impression: Primary Impression: Acute alcoholic gastritis Additional Impressions: Alcoholic hepatitis Transaminitis ER Course This patient has a clinical presentation consistent with alcoholic hepatitis and possibly alcoholic gastritis. The location of the pain and history and physical examination and laboratory workup is consistent with this. I considered other concerning differentials, to include appendicitis, cholelithiasis, cholecystitis, pancreatitis, perforated viscus, aortic aneurysm , and pyelonephritis to name a few. However, laboratory workup in combination with medical and surgical history and physical exam makes these unlikely at this time. I did educate the patient on close return precautions and followup instructions. Laboratory Tests Test 04/24/18 09:00 04/24/18 09:50 White Blood Count 5.3 K/UL (4.8-10.8) Red Blood Count 5.36 M/UL (4.20-5.40) Hemoglobin 16.2 G/DL (12.0-16.0) H Hematocrit 47.1 % (37.0-47.0) H Mean Corpuscular Volume 88 FL (80-99) Mean Corpuscular Hemoglobin 30.2 PG (27.0-31.0) Mean Corpuscular Hemoglobin Concent 34.4 G/DL (32.0-36.0) Red Cell Distribution Width 11.4 % (11.6-14.8) L Platelet Count 307 K/UL (150-450) Mean Platelet Volume 5.8 FL (6.5-10.1) L Neutrophils (%) (Auto) 72.9 % (45.0-75.0) Lymphocytes (%) (Auto) 17.3 % (20.0-45.0) L Monocytes (%) (Auto) 8.3 % (1.0-10.0) Eosinophils (%) (Auto) 0.3 % (0.0-3.0) Basophils (%) (Auto) 1.3 % (0.0-2.0) Sodium Level 139 MMOL/L (136-145) Potassium Level 3.2 MMOL/L (3.5-5.1) L Chloride Level 101 MMOL/L (98-107) Carbon Dioxide Level 27 MMOL/L (21-32) Anion Gap 11 mmol/L (5-15) Blood Urea Nitrogen 11 mg/dL (7-18) Creatinine 0.6 MG/DL (0.55-1.30) Estimate Glomerular Filtration Rate > 60 mL/min (>60) Glucose Level 145 MG/DL (74-106) H Calcium Level 8.2 MG/DL (8.5-10.1) L Total Bilirubin 1.3 MG/DL (0.2-1.0) H Direct Bilirubin 0.4 MG/DL (0.0-0.3) H Aspartate Amino Transferase (AST) 1286 U/L (15-37) H Alanine Aminotransferase (ALT) 1420 U/L (12-78) H Alkaline Phosphatase 83 U/L (46-116) Total Protein 6.5 G/DL (6.4-8.2) Albumin 3.6 G/DL (3.4-5.0) Globulin 2.9 g/dL Albumin/Globulin Ratio 1.2 (1.0-2.7) Lipase 83 U/L (73-393) Urine Color Yellow Urine Appearance Slightly cloudy Urine pH 8 (4.5-8.0) Urine Specific Cora 1.010 (1.005-1.035) Urine Protein 1+ (NEGATIVE) H Urine Glucose (UA) Negative (NEGATIVE) Urine Ketones Negative (NEGATIVE) Urine Blood 1+ (NEGATIVE) H Urine Nitrite Negative (NEGATIVE) Urine Bilirubin Negative (NEGATIVE) Urine Urobilinogen 4 MG/DL (0.0-1.0) H Urine Leukocyte Esterase 2+ (NEGATIVE) H Urine RBC 0-2 /HPF (0 - 2) Urine WBC 10-15 /HPF (0 - 2) H Urine Squamous Epithelial Cells Moderate /LPF (NONE/OCC) H Urine Bacteria Few /HPF (NONE) Urine HCG, Qualitative Negative (NEGATIVE) Urine Opiates Screen Negative (NEGATIVE) Urine Barbiturates Screen Negative (NEGATIVE) Phencyclidine (PCP) Screen Negative (NEGATIVE) Urine Amphetamines Screen Negative (NEGATIVE) Urine Benzodiazepines Screen Negative (NEGATIVE) Urine Cocaine Screen Negative (NEGATIVE) Urine Marijuana (THC) Screen Negative (NEGATIVE) Last Vital Signs Date Time Temp Pulse Resp B/P (MAP) Pulse Ox O2 Delivery O2 Flow Rate FiO2 04/24/18 08:51 103 19 Room Air 04/24/18 08:51 98.0 128/88 100 Status: improved Disposition: HOME, SELF-CARE Condition: Improved Referrals: NOT CHOSEN IPA/,REFERRING (PCP) Archana Carnes DO Apr 24, 2018 09:30
--- NOTE | 2018-04-24 09:40 | NUR ---
ED Nurse Note: obtained urine and sent to the lab.
[2018-04-24 09:41] LABS: ALANINE AMINOTRANSFERASE 1420 U/L (12-78); ALBUMIN 3.6 G/DL (3.4-5.0); ALBUMIN/GLOBULIN RATIO 1.2 (1.0-2.7); ALKALINE PHOSPHATASE 83 U/L (46-116); ASPARTATE AMINO TRANSFERASE 1286 U/L (15-37); BILIRUBIN,TOTAL 1.3 MG/DL (0.2-1.0)
[2018-04-24 09:50] LABS: BILIRUBIN,DIRECT 0.4 MG/DL (0.0-0.3)
[2018-04-24 10:04] LABS: APPEARANCE,URINE SLIGHTLY CLOUDY; BILIRUBIN, URINE NEGATIVE (NEGATIVE); GLUCOSE, URINE (UA) NEGATIVE (NEGATIVE); KETONES,URINE NEGATIVE (NEGATIVE); LEUKOCYTE ESTERASE ,URINE 2+ (NEGATIVE); NITRITE,URINE NEGATIVE (NEGATIVE); PH,URINE 8 (4.5-8.0); PROTEIN,URINE 1+ (NEGATIVE); UROBILINOGEN,URINE 4 MG/DL (0.0-1.0)
[2018-04-24 10:19] LABS: COLOR,URINE YELLOW
[2018-04-24] MEDS ORDERED: IBUPROFEN800 MG ORAL (12:21)
[2018-04-24] MEDS ORDERED: PEPCID AC20 M2 PO (12:21)
[2018-04-24 12:50] VITALS: BP 127/77
--- NOTE | 2018-04-24 12:50 | NUR ---
ER DISCHARGE NOTE: Patient is cleared to be discharged per ERMD, pt is aox4, on room air, with stable vital signs. pt was given dc and prescription instructions, pt was able to verbalize understanding, pt id band and iv site removed without complications. pt is able to ambulate with steady gait. pt took all belongings.
== END 2018-04-24 12:50 | disposition home or self-care (01) ==
LOC: EMR 08:51
DX: K29.20 Alcoholic gastritis without bleeding (principal); F10.10 Alcohol abuse, uncomplicated; K70.10 Alcoholic hepatitis without ascites; R74.0 Nonspecific elevation of levels of transaminase and lactic acid dehydrogenase [LDH]; K21.9 Gastro-esophageal reflux disease without esophagitis
CPT/HCPCS: 36415; 80053; 80307; 81003; 81025; 82248; 82962; 83690; 85025; 87086; 96361; 96374; 96375; 99284; J2405; S0028